=== PATIENT | female | born 1960 | race Caucasian/White ===

== ENCOUNTER 2021-01-14 09:53 | Outpatient (REF) | payer OTHER, SELFPAY ==
--- NOTE | ~2021-01-14 | MM_ITS ---
EXAMINATION: MM SCREENING DIGITAL BREAST TOMOSYNTHESIS, BILATERAL CLINICAL INFORMATION: Screening. Asymptomatic. Prior wna-de-dbrii mammography from [place] currently unavailable. The lifetime risk of breast cancer based on the Tyrer-Cuzick Model is 21%. COMPARISON: None. TECHNIQUE: Digital breast tomosynthesis is performed in both the craniocaudal and mediolateral oblique views along with computer-aided detection (CAD). Synthesized 2D images are generated from the tomosynthesis. FINDINGS: The breasts are heterogeneously dense, which may obscure small masses (ACR BI-RADS breast composition Category c). There is a fine fibronodular parenchymal pattern. There is no significant mass or architectural abnormality. The axilla and skin contours are unremarkable. There are calcifications seen in both breasts, likely dispersed on MLO views. Radiology department will attempt to retrieve prior outside mammography to allow for comparison in an addendum report. MM/MM tomosynthesis screening BI IMPRESSION: 1. No significant mass or architectural abnormality. 2. Bilateral calcifications, likely dispersed on MLO views. ASSESSMENT: BI-RADS 0: Incomplete - Comparison with prior outside exam pending RECOMMENDATION: 1. Radiology department staff will attempt to retrieve outside prior exam(s) to allow for comparison in an addendum report. 2. The lifetime risk of breast cancer based on the Tyrer-Cuzick Model is 21%. Additional annual adjunct screening with breast MRI may be of benefit in women with a risk score of 20% or greater. This patient's information was entered into a reminder system with a target due date for their next mammogram.
== END 2021-01-14 09:54 | disposition home or self-care (01) ==
LOC: HO.MAMMO 09:53
PROVIDERS: PCP Hospitalist; Visit Provider Hospitalist
DX: Z12.31 Encounter for screening mammogram for malignant neoplasm of breast (principal)
CPT/HCPCS: 77063; 77067

== ENCOUNTER 2021-07-15 09:15 | Outpatient (REF) | payer OTHER, SELFPAY ==
[2021-07-15 10:44] LABS: Hematocrit 36.1 % (37-47); Hemoglobin 11.4 g/dl (12.0-16.0); Mean Corpuscular HGB Conc 31.6 g/dl (31.0-35.0)
[2021-07-15 10:46] LABS: Mean Corpuscular Hemoglobin 21.9 pg (27.0-33.0); Mean Corpuscular Volume 69.3 fL (80-98); Platelet Count 157 X10*3/uL (160-400); Red Blood Count 5.21 X10*6/uL (4.20-5.50); Red Cell Distribution Width 16.2 % (11.0-16.0); White Blood Count 4.8 X10*3/uL (4.8-10.8)
[2021-07-15 10:58] LABS: Alanine Aminotransferase 15 U/L (0-31); Albumin Level 4.4 g/dL (3.5-5.0); Alkaline Phosphatase 79 U/L (39-117); Aspartate Amino Transferase 21 U/L (5-31); Bilirubin Direct 0.4 mg/dL (0.0-0.5); Cholesterol 176 mg/dL; HDL Cholesterol 88 mg/dL; LDL Cholesterol Calculated 79 mg/dl; Total Protein 7.1 g/dL (6.5-8.0); Triglycerides 48 mg/dL
[2021-07-15 11:18] LABS: TSH reflex Free T4 1.91 uIU/mL (0.32-4.0)
== END 2021-07-15 09:16 | disposition home or self-care (01) ==
LOC: HO.WFDLDS 09:15
PROVIDERS: PCP Hospitalist; Visit Provider Hospitalist
DX: Z00.00 Encounter for general adult medical examination without abnormal findings (principal)
CPT/HCPCS: 36415; 80061; 80076; 84443; 85027

== ENCOUNTER 2021-11-21 10:19 | Outpatient (REF) | payer OTHER, SELFPAY ==
[2021-11-21 14:24] LABS: CT PCR NOT DETECTED (Not Detect.); NG PCR NOT DETECTED (Not Detect.)
[2021-11-22 09:04] LABS: BV Int Neg Control Negative (Negative); BV Int Pos Control Positive (Positive)
[2021-11-23 13:55] LABS: HPV mRNA E6/E7 rflx Not Detected (Not Detected)
== END 2021-11-21 10:20 | disposition home or self-care (01) ==
LOC: HO.LAB 10:19
PROVIDERS: PCP Hospitalist; Visit Provider Advanced Practice Midwife
DX: Z01.419 Encounter for gynecological examination (general) (routine) without abnormal findings (principal); R10.2 Pelvic and perineal pain; Z11.3 Encounter for screening for infections with a predominantly sexual mode of transmission; Z11.8 Encounter for screening for other infectious and parasitic diseases; Z11.51 Encounter for screening for human papillomavirus (HPV); Z85.3 Personal history of malignant neoplasm of breast; Z87.891 Personal history of nicotine dependence; J30.1 Allergic rhinitis due to pollen; Z91.013 Allergy to seafood
CPT/HCPCS: 81003; 87480; 87491; 87510; 87591; 87624; 87660; 88142

== ENCOUNTER 2021-12-23 16:23 | Outpatient (REF) | payer OTHER, SELFPAY ==
--- NOTE | ~2021-12-23 | US_ITS ---
EXAMINATION: US PELVIS CLINICAL INFORMATION: Pelvic and perineal pain COMPARISON: None TECHNIQUE: Ultrasound of the pelvis is performed using both transabdominal and transvaginal transducers along with Doppler. Transvaginal imaging is performed due to inadequate visualization transabdominally. FINDINGS: Uterus: The uterus is anteverted and measures 5.5 cm in length, 1.8 cm in AP and 3.6 cm in transverse dimension. The double wall endometrial thickness is 0.4 cm. The uterus is smooth in contour and has normal myometrial echogenicity. No visible fibroid. Adnexa: Both ovaries are visualized. There is normal color flow to the adnexa. There is no ovarian torsion. There is no pelvic ascites or fluid collection. Right ovary measures 1.3 x 0.8 x 1.0 cm and volume 0.54 mL. There is unremarkable Left ovary measures 1.9 x 0.6 x 1.1 and volume 0.6 mL. It appears unremarkable. There is minimal free fluid in the cul-de-sac. US/US pelvic and transvaginal IMPRESSION: Unremarkable uterus and ovaries. Minimal free fluid in the cul-de-sac.
== END 2021-12-23 16:24 | disposition home or self-care (01) ==
LOC: HO.US 16:23
PROVIDERS: Visit Provider Advanced Practice Midwife
DX: R10.2 Pelvic and perineal pain (principal)
CPT/HCPCS: 76830; 76856

== ENCOUNTER → 2022-01-03 11:25 | Outpatient (BNVA) | payer OTHER, SELFPAY | PROVIDERS: PCP Hospitalist; Visit Provider Advanced Practice Midwife | DX: Z13.89 Encounter for screening for other disorder (principal) ==

== ENCOUNTER 2022-11-14 11:19 | Outpatient (REF) | payer OTHER, SELFPAY ==
--- NOTE | ~2022-11-14 | MM_ITS ---
EXAMINATION: MM SCREENING DIGITAL BREAST TOMOSYNTHESIS, BILATERAL CLINICAL INFORMATION: Screening. Asymptomatic. The lifetime risk of breast cancer based on the Tyrer-Cuzick Model is 19%. COMPARISON: Mammography: 01/14/2021, outside mammography 03/04/2019, 04/10/2017 and left ultrasound 03/18/2019, ([facility]). TECHNIQUE: Digital breast tomosynthesis is performed in both the craniocaudal and mediolateral oblique views along with computer-aided detection (CAD). Synthesized 2D images are generated from the tomosynthesis. FINDINGS: The breasts are heterogeneously dense, which may obscure small masses (ACR BI-RADS breast composition Category c). Fibronodular parenchymal pattern is similar to prior studies and there is no developing density or architectural abnormality. There are no significant masses, abnormal calcifications, or other abnormalities. MM/MM tomosynthesis screening BI IMPRESSION: No mammographic evidence of malignancy. ASSESSMENT: BI-RADS 1: Negative RECOMMENDATION: Routine annual mammography screening. This patient's information was entered into a reminder system with a target due date for their next mammogram.
== END 2022-11-14 11:20 | disposition home or self-care (01) ==
LOC: HO.MAMMO 11:19
PROVIDERS: PCP Hospitalist; Visit Provider Hospitalist
DX: Z12.31 Encounter for screening mammogram for malignant neoplasm of breast (principal)
CPT/HCPCS: 77063; 77067

== ENCOUNTER → 2023-01-10 15:09 | Outpatient (BNVA) | payer BC, SELFPAY | PROVIDERS: PCP Hospitalist; Visit Provider Advanced Practice Midwife | DX: Z13.89 Encounter for screening for other disorder (principal) ==

== ENCOUNTER 2023-07-24 08:57 | Outpatient (AMB) | payer BC, SELFPAY ==
--- NOTE | 2023-07-24 09:05 | MHC.PC.OV ---
Vital Signs 07/24/23 09:07 Height 5 ft 5 in Weight 126 lb 4 oz BMI 21.0 BP 120/62 Blood Pressure Location Rt brachial Position Sitting Respiration 12 Pulse 68 Pulse Source Pulse Oximeter Temp 98.1 F Temp Source Oral Pulse Oximetry (%) 99 Oxygen Delivery Method Room Air Intake Visit Reasons: 6 mo for mood and meds Intake Note: Patient is here for her mood and meds, Sertraline, Trazedone. Allergies shellfish derived Allergy (Unknown, Verified 07/24/23 09:33) Unknown poison preston Allergy (Intermediate, Uncoded 07/24/23 09:33) rash, weeping Medication List - Last Reconciled 07/24/23 by Caden Mtz, LILLIE peg 3350-electrolytes [id number] -5.86 gram 240 mL PO Q10M sertraline 50 mg PO DAILY trazodone 25 mg (1/2 x 50 mg) PO DAILY Tobacco use date assessed: 07/24/23 Dental Screening Dental Screen Date: 07/24/23 Did you have a dental visit in the last 12 months?: Yes Did you have a dental problem in the last 6 months where you did not have access to dental care?: No Was dental information given to patient?: Patient has dentist HPI HPI Comments History of Present Illness Details 62-year-old female presents for anxiety and depression follow-up. She was last evaluated by in November 2022 by her form a PCP, CARRIE, who is no longer with the practice. She had a physical exam at that visit. She is on Sertraline and Trazodone which she notes she has been taking as prescribed with controlled anxiety and depression symptoms. She reports h/o psychotherapy and notes is currently being followed by a therapist. She requests a referral to a therapist. She offers no acute symptoms at this time. [facility] Medical History Insomnia History of anxiety Depression Surgical History H/O foot surgery No pertinent past surgical history Family History Father No problems noted. Mother No problems noted. Sister In good health History of breast cancer Brother In good health Maternal Aunt History of breast cancer Paternal Aunt History of breast cancer Paternal Uncle History of breast cancer Paternal Grandmother History of breast cancer Social History Housing: House Alcohol intake: current Alcohol intake frequency: 0-2 drinks per day Patient Tobacco Use Status: Former Tobacco user Tobacco use type: Cigarette e-Cigarette/Vaping Use: Never Used Second Hand Smoke Exposure: No service: No Current occupational status: employed Sexual orientation: Straight/Heterosexual Gender identity: Female Cognitive needs: No Hearing needs: No Vision needs: No Questionnaire PHQ-9 Over the last 2 weeks, how often have you been bothered by any of the following problems? 1. Little interest or pleasure in doing things: not at all 2. Feeling down, depressed, or hopeless: not at all 3. Trouble falling or staying asleep, or sleeping too much: nearly every day 4. Feeling tired or having little energy: not at all 5. Poor appetite or overeating: not at all 6. Feeling bad about yourself - or that you are a failure or have let yourself or your family down: several days 7. Trouble concentrating on things, such as reading the newspaper or watching television: more than half the days 8. Moving or speaking so slowly that other people could have noticed. Or the opposite - being so fidgety or restless that you have been moving around a lot more than usual: not at all 9. Thoughts that you would be better off or of hurting yourself in some way: not at all Total score: 6 Depression Screening Interpretation: Positive Depression Screening Follow-up: Existing condition, In treatment and Community Mental Health Worker F/U Depression Screening Done: Yes Source: Developed by Drs. Myke Valencia, Kellie Silveira, Kermit Sharif and colleagues, with an educational abbie from [employer]. Thrive Questionnaire Date Thrive assessed: 12/07/22 DILIP-7 AMB Questionnaire DILIP-7 Date DILIP - 7 assessed: 07/24/23 Feeling nervous, anxious, or on edge: 1 = Several days Not being able to stop or control worryin = Several days Worrying too much about different things: 1 = Several days Trouble relaxin = Several days Being so restless that it is hard to sit still: 0 = Not at all Becoming easily annoyed or irritable: 1 = Several days Feeling afraid as if something awful might happen: 0 = Not at all Total DILIP-7 score (0-4 normal; 5-9 mild; 10-14 moderate; 15-21 severe): 5 Source: Developed by Drs. Myke Valencia, Kellie Silveira, Kermit Sharif and colleagues, with an educational abbie from [employer]. Review of Systems Const Details: Const Denies chills, Denies fatigue, Denies fever(s), Denies headache(s) and Denies weakness ENT Denies dizziness and Denies headache(s) Card Denies chest pain, Denies lightheadedness, Denies dyspnea and Denies other (Palpitations) Resp Denies cough, Denies dyspnea, Denies wheezing and Denies other ( shortness of breath) GI Denies abdominal pain, Denies melena, Denies hematochezia, Denies change in bowel habits, Denies dyspepsia and Denies nausea Denies hematuria and Denies dysuria Musc Denies abnormal gait, Denies myalgias, Denies arthralgias, Denies numbness and Denies tingling Skin/Breast Denies rash, Denies unusual bruising and Denies wounds Neuro Denies abnormal gait, Denies dizziness, Denies headache(s), Denies memory loss, Denies numbness, Denies Sensory deficit (Neuro), Denies tingling and Denies weakness Psych Denies anxiety, Denies depression, Denies memory loss Endo Denies cold intolerance, Denies fatigue, Denies heat intolerance, Denies polydipsia and Denies polyuria Aller/Immun Denies wheezing Physical exam (Primary Care) Vital Signs: Last Vital Signs Temp 98.1 F 07/24/23 09:07 Pulse 68 07/24/23 09:07 Resp 12 07/24/23 09:07 BP 120/62 07/24/23 09:07 Pulse Ox 99 07/24/23 09:07 Oxygen Delivery Method Room Air 07/24/23 09:07 BMI result Body Mass Index 21.0 Tobacco/Smoking Status: Tobacco use Status Tobacco use date assessed 07/24/23 07/24/23 09:18 Patient Tobacco Use Status Former Tobacco user 07/24/23 09:07 Tobacco use type Cigarette 10/10/23 09:07 e-Cigarette/Vaping Use Never Used 07/24/23 09:07 PHQ-9: PHQ-9 Score PHQ-9: Total score 6 07/24/23 09:18 Depression Screening Interpretation: Positive Depression Screening Follow-up: Existing condition, In treatment and Community Mental Health Worker F/U Thrive Assessment: Date of Thrive Assessment Date Thrive assessed 12/07/22 07/24/23 09:07 Const Other: General: no acute distress and well developed Nutritional Appearance: well nourished Orientation/consciousness: patient oriented x3 HENMT Head: Yes normocephalic and Yes atraumatic Eyes General: appearance normal, both eyes and all related structures Pupils: Equal, round and reactive pupils present EOM: EOMs intact bilaterally Resp Effort & Inspection: normal respiratory effort Auscultation: clear to auscultation bilaterally Cardio Rate: regular rate Rhythm: regular rhythm Heart sounds: S1 normal heart sound present, S2 normal heart sound present, no gallops, no murmurs and no rubs GI Palpation (GI): No Abdominal aortic bruit present, Soft to palpation, nontender, No hepatosplenomegaly present and No Rebound tenderness present Auscultation: normal bowel sounds General: Yes no CVA tenderness Back/Spine/Pelvis Back: no CVA tenderness Cervical Spine: cervical ROM normal and No Cervical spine tenderness Thoracic/Lumbar Spine: thoraco-lumbar ROM normal, No pain with thoraco-lumbar ROM, No thoracic spinal tenderness and No lumbar spinal tenderness Extrem General: Yes normal to inspection, No edema and No calf tenderness Skin General: warm and dry. Normal skin color. Normal skin turgor Lesions: no lesions Rashes: no rashes Trauma: no lacerations or abrasions Wounds: no wounds Nails: normal Neuro General: patient oriented x3, gait normal and no focal neuro deficit Cranial nerves: Yes Equal, round and reactive pupils present Cognition (Neuro): normal cognition Gait exam (Neuro): Normal gait present Sensory Exam: No Sensory deficit (Neuro) Psych Appearance: grossly normal Affect: normal affect Attitude: cooperative Thought process: Normal thought process present Assessment and Plan Assessment & Plan (1) Anxiety and depression: Code(s): F41.9 - Anxiety disorder, unspecified; F32.A - Depression, unspecified Plan: PHQ-9 and DILIP-7 scores revealed mild depression and anxiety Continue with current treatment regimen She met with the community navigator who will referred to a therapist Routine exercise encouraged Follow-up in 3 months or return sooner with worsening or new symptoms Verbalized understanding and agreed with treatment plan. Coding Level of Care Code Est Pt Level 3 (46197) Diagnoses Anxiety and depression F41.9; F32.A
[2023-07-24 09:07] VITALS: BP 120/62; PULSE 68; RESP 12; TEMP 36.7; O2SAT 99; BMI 21.0
== END 2023-07-24 10:04 | disposition home or self-care (01) ==
PROVIDERS: PCP Hospitalist; Visit Provider Nurse Practitioner Family
DX: F41.9 Anxiety disorder, unspecified (principal); F32.A Depression, unspecified
CPT/HCPCS: 99213

== ENCOUNTER 2023-11-15 11:46 | Outpatient (REF) | payer BC, SELFPAY | END 2023-11-15 11:47 | disposition home or self-care (01) | LOC: HO.MAMMO 11:46 | PROVIDERS: Visit Provider Hospitalist | DX: Z12.31 Encounter for screening mammogram for malignant neoplasm of breast (principal) | CPT/HCPCS: 77063; 77067 ==

== ENCOUNTER → 2023-11-15 12:00 | Outpatient (BNV) | payer BC, SELFPAY | PROVIDERS: Visit Provider Radiology Diagnostic Radiology | DX: Z12.31 Encounter for screening mammogram for malignant neoplasm of breast (principal) | CPT/HCPCS: 77063; 77067 ==

== ENCOUNTER 2024-01-16 15:16 | Outpatient (AMB) | payer BC, SELFPAY ==
--- NOTE | 2024-01-16 15:17 | A.OFFVIS_ITS ---
Intake Vital Signs 01/16/24 15:18 Height 5 ft 5 in Weight 127 lb BMI 21.1 BP 110/72 Intake Visit Reasons: Annual Electrical And Instrumentation Manager: Electrical And Instrumentation Manager Present (Demi) Allergies shellfish derived Allergy (Unknown, Verified 01/16/24 15:18) Unknown poison preston Allergy (Intermediate, Uncoded 07/24/23 09:33) rash, weeping HPI HPI Comments History of Present Illness Details She is a postmenopausal woman presenting for her annual process architect examination. She is doing well with no concerns. Attempting to eat a healthy diet with calcium and vitamin D and stays active with exercise. Currently sexually active. Denies any irritation. Admits to vaginal dryness. STI testing offered; she declines. Last pap smear; 2021. Last mammogram; 2022. Colonoscopy is this year. Denies any family history of breast, ovarian or colon cancer. [facility], [facility] Medical History Insomnia History of anxiety Depression Surgical History H/O foot surgery No pertinent past surgical history Family History (Updated 01/16/24 @ 16:02 by Kelsey Abdi CNM) Father No problems noted. Mother No problems noted. Sister In good health History of breast cancer, Onset Age: 70 Brother In good health Maternal Aunt History of breast cancer Paternal Aunt History of breast cancer Paternal Uncle History of breast cancer Paternal Grandmother History of breast cancer Social History Housing: House Alcohol intake: current Alcohol intake frequency: 0-2 drinks per day Patient Tobacco Use Status: Former Tobacco user Tobacco use type: Cigarette e-Cigarette/Vaping Use: Never Used Second Hand Smoke Exposure: No service: No Current occupational status: employed Sexual orientation: Straight/Heterosexual Gender identity: Female Cognitive needs: No Hearing needs: No Vision needs: No Female Reproductive History Menstrual Total pregnancies: 0 Date of last pap smear: 11/21/21 (neg pap and hpv) Date of Mammogram: 11/15/23 ([facility] 1) Review of Systems Const All systems reviewed & are unremarkable except as noted in HPI and below Reports as per HPI Eyes Reports no additional complaints ENT Reports no additional complaints Card Reports no additional complaints Resp Reports no additional complaints GI Reports as per HPI and Reports no additional complaints Reports as per HPI Musc Reports no additional complaints Skin/Breast Reports as per HPI Neuro Reports no additional complaints Psych Reports no additional complaints Endo Reports no additional complaints Johnny/Lymph Reports no additional complaints Aller/Immun Reports no additional complaints Physical Exam Vital Signs: Last Vital Signs BP 110/72 01/16/24 15:18 BMI result Body Mass Index 21.1 Const General: cooperative, healthy appearing, no acute distress, well developed and alert Orientation/consciousness: patient oriented x3 HEENT Head: Yes normal to inspection Eyes General: appearance normal, both eyes and all related structures Neck Neck: Yes normal visual inspection Thyroid: Thyroid normal Chest Chest palpation & inspection: normal inspection of the chest and other (no puckering, dimpling, peau de orange, retraction, discharge, masses) Breast/axilla inspection: normal inspection of the breasts Breast/axilla palpation: normal palpation of the breasts Resp Effort & Inspection: normal respiratory effort GI Inspection: Yes normal to inspection Palpation (GI): Soft to palpation Rectal Exam - Female: deferred General: Yes bladder normal to palpation External Female Exam: normal external appearance and normal appearance of the urethra Speculum Exam - Vagina: normal appearance of the vagina, normal palpation, normal vaginal discharge and vagina atrophic Speculum Exam - Cervix: normal appearance of the cervix and normal palpation Bimanual exam- vagina & uterus: normal bimanual exam, normal palpation, uterine size normal, bladder normal to palpation, normal palpation and non-tender Bimanual Exam- Adnexa, other: no masses Skin General skin exam: no rashes or lesions noted Rashes: no rashes Neuro General: patient oriented x3 Cognition (Neuro): normal cognition Extrem General: Yes normal to inspection Psych Attitude: cooperative Thought process: Normal thought process present Assessment & Plan Assessment & Plan (1) Encounter for well woman exam with routine gynecological exam: Code(s): Z01.419 - Encounter for gynecological examination (general) (routine) without abnormal findings Plan Discussed: Current recommendations for pap smears per ASCCP guidelines. Breast awareness, periodic self breast exams and yearly mammogram. Maintain a healthy lifestyle, well balanced diet including Calcium 1,200 mg and Vitamin D 600 IU daily, and routine exercise. Replens vaginal moisturizer information provided. If no improvement after 12 weeks or so she can follow up for other options possible topical estrogen treatment, patient advised to call for an appointment as desired. Contact the office with any postmenopausal bleeding. Patient verbalizes understanding and agrees to the plan of care. She was given opportunity to ask questions and all questions were answered to the best of my ability. RTO in 1 year for annual process architect exam. This note is constructed using voice recognition software. While every effort has been made to ensure accuracy, order filler errors may have been included. Coding Level of Care Code Est Pt Prev Care 40-64y(20788) Diagnoses Encounter for well woman exam with routine gynecological exam Z01.419
[2024-01-16 15:18] VITALS: BP 110/72; BMI 21.1
== END 2024-01-16 16:14 | disposition home or self-care (01) ==
LOC: HO.HWS 15:16
PROVIDERS: Visit Provider Advanced Practice Midwife
DX: Z01.419 Encounter for gynecological examination (general) (routine) without abnormal findings (principal)
CPT/HCPCS: 99396

== ENCOUNTER → 2024-01-16 15:16 | Outpatient (BNVA) | payer BC, SELFPAY | PROVIDERS: Visit Provider Advanced Practice Midwife ==

== ENCOUNTER 2024-03-26 14:18 | Outpatient (AMB) | payer BC, SELFPAY ==
--- NOTE | 2024-03-26 14:29 | A.OFFPC_ITS ---
Vital Signs 03/26/24 14:33 Height 5 ft 4.65 in Weight 124 lb 2 oz BMI 20.9 BP 132/86 Blood Pressure Location Lt brachial Position Sitting Pulse 70 Pulse Source Pulse Oximeter Temp 97.3 F Temp Source Oral Pulse Oximetry (%) 95 Oxygen Delivery Method Room Air Intake Visit Reasons: CARY from [facility] Intake Note: New patient visit Allergies shellfish derived Allergy (Unknown, Verified 03/26/24 14:30) Unknown poison preston Allergy (Intermediate, Uncoded 03/26/24 14:30) rash, weeping Medication List - Last Reconciled 03/26/24 by Kyleigh Huston PA-C bisacodyl (Dulcolax (bisacodyl)) 20 mg (4 x 5 mg) PO ONCE 1 day peg 3350-electrolytes 236-22.74-6.74 -5.86 gram 240 mL PO Q10M sertraline 50 mg PO DAILY 30 days Tobacco use date assessed: 03/26/24 Dental Screening Dental Screen Date: 03/26/24 Did you have a dental visit in the last 12 months?: Yes Did you have a dental problem in the last 6 months where you did not have access to dental care?: No Was dental information given to patient?: Patient has dentist HPI CARY from [facility] HPI Details Patient is a 63-year-old female with a significant past medical history of anxiety, insomnia, hx of mild depression (resolved), and thalassemia Psych: She is currently on zoloft 50 mg. No SI/HI. CV: Blood pressure today is 132/86. Not on medication for this. Overdue for lipids. Heme: has thalassemia Derm: follows for routine skin exams with Dr. Ferris. Brother had melanoma Colonoscopy: scheduled at [facility] next month - last one was ten years ago Mammogram: 12/0864-ju-pt-date Pap: follows with Kelsey Abdi Bone density: overdue Fam hx : Sister with breast ca Brother #1 Prostate ca Brother #2 with melanoma [facility] Medical History (Updated 03/26/24 @ 16:19 by Kyleigh Huston PA-C) Generalized anxiety disorder Insomnia History of anxiety Depression Surgical History H/O foot surgery No pertinent past surgical history Family History (Updated 03/26/24 @ 14:33 by Yina Disla CMA) Father No problems noted. Mother No problems noted. Sister In good health History of breast cancer, Onset Age: 70 Brother In good health Maternal Aunt History of breast cancer Paternal Aunt History of breast cancer Paternal Uncle History of breast cancer Paternal Grandmother History of breast cancer Other FH: mental illness Substance use Social History (Updated 03/26/24 @ 14:32 by Yina Disla CMA) Housing: House Alcohol intake: current Alcohol intake frequency: 0-2 drinks per day Patient Tobacco Use Status: Former Tobacco user Tobacco use type: Cigarette Cigarettes Per Day: 3 Years Smoked: 20 e-Cigarette/Vaping Use: Never Used Second Hand Smoke Exposure: No service: No Current occupational status: employed 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 How often do you have a drink containing alcohol?: 2-3 times a week 2. How many drinks containing alcohol do you have on a typical day when you are drinking?: 1 or 2 3. How often do you have six or more drinks on one occasion?: Never Total Score: 3 DILIP-7 AMB Questionnaire DILIP-7 Date DILIP - 7 assessed: 07/24/23 Source: Developed by Drs. Myke Valencia, Kellie Silveira, Kermit Sharif and colleagues, with an educational abbie from [employer]. Physical exam (Primary Care) Vital Signs: Last Vital Signs Temp 97.3 F 03/26/24 14:33 Pulse 70 03/26/24 14:33 BP 132/86 03/26/24 14:33 Pulse Ox 95 03/26/24 14:33 Oxygen Delivery Method Room Air 03/26/24 14:33 BMI result Body Mass Index 20.9 Tobacco/Smoking Status: Tobacco use Status Tobacco use date assessed 03/26/24 03/26/24 14:37 Patient Tobacco Use Status Former Tobacco user 03/26/24 14:37 Tobacco use type Cigarette 03/26/24 14:37 e-Cigarette/Vaping Use Never Used 03/26/24 14:37 Thrive Assessment: Date of Thrive Assessment Date Thrive assessed 12/07/22 03/26/24 14:37 Const Orientation/consciousness: patient oriented x3 HENMT Ears: hearing grossly normal bilaterally Neck Thyroid: Thyroid normal Lymphatic: no lymphadenopathy noted Resp Auscultation: clear to auscultation bilaterally Cardio Rate: regular rate Rhythm: regular rhythm Heart sounds: S1 normal heart sound present and S2 normal heart sound present GI Inspection: Yes normal to inspection Palpation (GI): Soft to palpation and Other GI palpation findings present (nontender, no cva tenderness) Auscultation: normoactive bowel sounds Rectal Exam - Female: deferred Skin General skin exam: no rashes or lesions noted Neuro General: patient oriented x3, gait normal and no focal motor deficits Results Reviewed Results Reviewed: Last CBC in 2020 consistent with anemia. No updated labs. Assessment and Plan Assessment & Plan (1) Generalized anxiety disorder: Code(s): F41.1 - Generalized anxiety disorder Plan: will refill medication today (2) Encounter to establish care: Code(s): Z76.89 - Persons encountering health services in other specified circumstances Plan: labs ordered hm reviewed bone density ordered Orders: Orders Comprehensive Radnor. Panel Fast Today F41.1 - Generalized anxiety disorder, Z13.220 - Encounter for screening for lipoid disorders TSH reflex Free T4 Today F41.1 - Generalized anxiety disorder, Z13.220 - Encounter for screening for lipoid disorders Complete Blood Count Auto Diff Today F41.1 - Generalized anxiety disorder, Z13.220 - Encounter for screening for lipoid disorders Lipid Panel Today F41.1 - Generalized anxiety disorder, Z13.220 - Encounter for screening for lipoid disorders Vitamin B12 and Folate Today F41.1 - Generalized anxiety disorder, Z13.220 - Encounter for screening for lipoid disorders XR DEXA axial skeleton Today F41.1 - Generalized anxiety disorder, Z13.220 - Encounter for screening for lipoid disorders, Z78.0 - Asymptomatic menopausal state Medications: Changed From sertraline 50 mg PO DAILY 30 days 30 tabs 0RF F32.9 - Major depressive disorder, single episode, unspecified To sertraline 50 mg PO DAILY 90 tabs 3RF 90 days F32.9 - Major depressive disorder, single episode, unspecified Coding Level of Care Code Est Pt Level 4 (88232) Complex EM visit Add On G2211 Diagnoses Generalized anxiety disorder F41.1 Encounter to establish care Z76.89
[2024-03-26 14:33] VITALS: BP 132/86; PULSE 70; TEMP 36.3; O2SAT 95; BMI 20.9
== END 2024-03-26 15:28 | disposition home or self-care (01) ==
PROVIDERS: Visit Provider Physician Assistant
DX: F41.1 Generalized anxiety disorder (principal); Z76.89 Persons encountering health services in other specified circumstances
CPT/HCPCS: 99214

== ENCOUNTER 2024-04-25 09:08 | Outpatient (REF) | payer BC, SELFPAY ==
--- NOTE | ~2024-04-25 | MM_ITS ---
EXAMINATION: BONE DENSITOMETRY CLINICAL INDICATION: Asymptomatic menopausal state. COMPARISON: This is the patient's baseline examination. TECHNIQUE: Using a Pixelligent DXA System (software version: 13.1) manufactured by [employer] dual-energy x-ray absorptiometry was performed of the lumbar spine and left hip. The images are of good technical quality. Summary results are attached. FINDINGS: LEFT FEMUR, NECK: BMD 0.673 g/cm2, Z-score -1.1, T-score -2.6, osteoporosis. LEFT FEMUR, TOTAL: BMD 0.704 g/cm2, Z-score -1.2, T-score -2.4, osteopenia. AP SPINE L1-L4: BMD 0.819 g/cm2, Z-score -1.4, T-score -3.0, osteoporosis. IDENTIFIED RISK FACTORS: Height loss, menopause. HISTORY OF FRACTURE: None listed. MEDICATIONS: Vitamin D. MM/XR DEXA axial skeleton IMPRESSION: 1. DIAGNOSIS: Osteoporosis based on the lowest T-score value of -3.0 in the lumbar spine applying World Health Organization criteria. 2. 10-YEAR FRACTURE RISK PREDICTION, FRAX: According to the guidelines, FRAX calculation should only be performed on patients in the osteopenia bone density category. Therefore, FRAX was not performed on this patient. 3. Treatment Recommendations: NOF guidelines recommend consideration for treatment in postmenopausal women and men age 50 and older presenting with the following: -A hip or vertebral (clinical or morphometric) fracture. -T-score less than or equal to -2.5 at the femoral neck or spine after appropriate evaluation to exclude secondary causes. -Low bone mass at the hip or spine and a 10-year fracture probability by FRAX of greater than or equal to 3% for hip fracture or greater than or equal to 20% for major osteoporotic fracture based on the [place] adapted WHO algorithm. 4. Other Recommendations: All treatment decisions require clinical judgment and consideration of individual patient factors, including patient preferences, comorbidities, previous drug use, risk factors not captured in the FRAX model (e.g. frailty, falls, vitamin D deficiency, increased bone turnover, interval significant decline in bone density) and possible under or overestimation of fracture risk by FRAX. Additional medical evaluation for secondary cause of low bone mineral density may be appropriate. FUTURE SCAN RECOMMENDATION: People with diagnosed cases of osteoporosis or at high risk for fracture should have regular bone mineral density tests. For patients eligible for Medicare, routine testing is allowed once every 2 years. The testing frequency can be increased to one year for patients who have rapidly progressing disease, those who are receiving or discontinuing medical therapy to restore bone mass, or have additional risk factors.
== END 2024-04-25 09:09 | disposition home or self-care (01) ==
LOC: HO.MAMMO 09:08
PROVIDERS: PCP Physician Assistant; Visit Provider Physician Assistant
DX: Z13.820 Encounter for screening for osteoporosis (principal); Z78.0 Asymptomatic menopausal state
CPT/HCPCS: 77080

== ENCOUNTER 2024-04-28 11:55 | Day surgery (SDC) | payer BC, SELFPAY ==
--- NOTE | 2024-04-25 09:23 | HO.ANESPROP2 ---
HPI - Anesthesia Eval Consult details Narrative: 63yo F for Colonoscopy PMFSH Active Problems Active Problems: All Active Problems Encounter to establish care (Acute) Generalized anxiety disorder (Acute) Anxiety and depression (Acute) Hx of iron deficiency anemia (Acute) Normal physical exam (Acute) Actinic keratosis of forehead (Acute) Encounter to discuss test results (Acute) Left lower quadrant pain (Acute) Poison preston dermatitis (Acute) Sleep disturbance (Acute) AK (actinic keratosis) (Acute) Well adult exam (Acute) Past Medical History Medical History Generalized anxiety disorder Insomnia History of anxiety Depression Family History Family History Father No problems noted. Mother No problems noted. Sister In good health History of breast cancer, Onset Age: 70 Brother In good health Maternal Aunt History of breast cancer Paternal Aunt History of breast cancer Paternal Uncle History of breast cancer Paternal Grandmother History of breast cancer Other FH: mental illness Substance use Surgical History Surgical History Hx of colonoscopy H/O foot surgery Social History Social History Housing: House Alcohol intake: current Alcohol intake frequency: does not drink Patient Tobacco Use Status: Former Tobacco user Tobacco use type: Cigarette Cigarettes Per Day: 3 Years Smoked: 20 e-Cigarette/Vaping Use: Never Used Second Hand Smoke Exposure: No service: No Current occupational status: employed 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 Current occupational exposures/hazards: No Sexual orientation: Straight/Heterosexual Gender identity: Female Cognitive needs: No Hearing needs: No Vision needs: No Meds Allergies Allergy/AdvReac Type Severity Reaction Status Date / Time shellfish derived Allergy Intermediate Rash Verified 04/28/24 12:40 poison preston Allergy Intermediate rash, Uncoded 03/26/24 14:30 weeping Home Medications ?Medication ?Instructions ?Recorded ?Confirmed ?Last Taken ?Type sertraline 50 mg tablet 50 mg PO BEDTIME 04/28/24 04/28/24 04/27/24 History Assessment and Plan Assessment Anesthesia Assessment: Chart Reviewed
[2024-04-28 09:28] VITALS: BMI 21.3
--- NOTE | 2024-04-28 12:30 | MHC.SHP ---
Pre-Procedural Eval Section A - 24 Hr Update-Section A only Date of Service: 04/28/24 The patient is an INPATIENT: No The patient has been examined within 24 hours of the surgical procedure. The History & Physical has been completed within 30 days and I have reviewed it.: No Section B - Complete if H&P > 30 days Chief Complaint: Screening, open access colonoscopy Details of Present Illness: Pt denies abdominal pain, recent change in bowel habits or rectal bleeding Relevant Family History (Specify if Yes): No Relevant Social History: Tobacco Use (Former smoker) Present Medications: see Short Stay Collaborative assessment Medical History: Significant History (Generalized anxiety disorder Insomnia History of anxiety Depression) History of Previous Operations: Relevant previous surgery/procedure and date(s) (H/O foot surgery) Allergies: Allergies Allergy/AdvReac Type Severity Reaction Status Date / Time shellfish derived Allergy Unknown Unknown Verified 03/26/24 14:30 poison preston Allergy Intermediate rash, Uncoded 03/26/24 14:30 weeping Review of Systems Sugical H&P ROS: Negative: Constitution, Cardiovascular, Respiratory and Gastrointestinal Exam Surgical H&P Exam: Normal: Heart, Normal: Lungs, Normal: Extremities and Normal: Abdomen Plan Diagnosis/Plan: Change (Proceed with colonoscopy) I have reviewed the history and physical and performed a pertinent physical examination on my patient. No changes have occurred unless specified. Time Spent With Patient Time: Total time managing care of this patient today ____ minutes.
[2024-04-28 12:34] VITALS: BP 154/76; PULSE 68; RESP 18; TEMP 36.1; O2SAT 96; BMI 21.0
[2024-04-28] MEDS: Lactated Ringers 1,000 ML 100 ML IVCONT (12:50)
--- NOTE | 2024-04-28 13:23 | HO.ANESPROP2 ---
FORM[facility]LY [facility] Active Problems Active Problems: All Active Problems Encounter to establish care (Acute) Anxiety and depression (Acute) Hx of iron deficiency anemia (Acute) Normal physical exam (Acute) Actinic keratosis of forehead (Acute) Encounter to discuss test results (Acute) Left lower quadrant pain (Acute) Poison preston dermatitis (Acute) Sleep disturbance (Acute) AK (actinic keratosis) (Acute) Well adult exam (Acute) Generalized anxiety disorder (Acute) Past Medical History Medical History Generalized anxiety disorder Insomnia History of anxiety Depression Functional capacity: independent ambulation Patient : No Family History Family History Father No problems noted. Mother No problems noted. Sister In good health History of breast cancer, Onset Age: 70 Brother In good health Maternal Aunt History of breast cancer Paternal Aunt History of breast cancer Paternal Uncle History of breast cancer Paternal Grandmother History of breast cancer Other FH: mental illness Substance use Family history of problems with anesthesia: No Surgical History Surgical History Hx of colonoscopy H/O foot surgery History of Problems with Anesthesia: No Social History Social History Housing: House Alcohol intake: current Alcohol intake frequency: does not drink Patient Tobacco Use Status: Former Tobacco user Tobacco use type: Cigarette Cigarettes Per Day: 3 Years Smoked: 20 e-Cigarette/Vaping Use: Never Used Second Hand Smoke Exposure: No Are you DNR?: No Advance Directives: No Advance Directives Information Provided: Yes Nutrition Risks: No Nutritional Risk service: No Current occupational status: employed 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 Current occupational exposures/hazards: No Sexual orientation: Straight/Heterosexual Gender identity: Female Cognitive needs: No Hearing needs: No Vision needs: No Meds Allergies Allergy/AdvReac Type Severity Reaction Status Date / Time shellfish derived Allergy Intermediate Rash Verified 04/28/24 12:40 poison preston Allergy Intermediate rash, Uncoded 03/26/24 14:30 weeping Active Medications: Current Medications Lactated Ringer's (Lr) 1,000 mls @ 100 mls/hr IVCONT .Q10H NIDHI Last Admin: 04/28/24 12:50 Dose: 100 mls/hr Home Medications ?Medication ?Instructions ?Recorded ?Confirmed ?Last Taken ?Type sertraline 50 mg tablet 50 mg PO BEDTIME 04/28/24 04/28/24 04/27/24 History Exam Height,Weight and Vital Signs: Height 5 ft 4 in Weight 55.474 kg Last Vital Signs Temp 96.9 F 04/28/24 12:34 Pulse 68 04/28/24 12:34 Resp 18 04/28/24 12:34 BP 154/76 H 04/28/24 12:34 Pulse Ox 96 04/28/24 12:34 O2 Del Method Room Air 04/28/24 12:34 Airway Mallampati Class: II TM Dist: >3cm Neck ROM: Full Heart: RRR Lungs: CTA Assessment and Plan Assessment Anesthesia Assessment: Anesthesia Plan Discussed Final Anesthetic Review Family History of Problems with Anesthesia: No History of Problems with Anesthesia: No NPO: Yes ASA Class: II Final Preanesthetic Review: Meds/Allgs Chart Reviewed, Consent Obtained/Reviewed and Anes Risks/Benef Reviewed Anesthetic Plan Anesthetic Plan: MAC: Disposition: Standard PACU
--- NOTE | 2024-04-28 14:56 | P.OPN-COLO_ITS ---
Colonoscopy Operative Note Operative Note Date of Service: 04/28/24 Narrative: COLONOSCOPY TILL CECUM Pre-op diagnosis: Colon cancer screening. Post-op diagnosis:?Diverticulosis Endoscopist:? Javier Kowalski MD Anesthesia:?MAC Consent: Indications for the procedure and potential complications of bleeding, perforation, reaction to medications and missed diagnosis were discussed with the patient and informed consent was obtained. Instrument: Olympus PCF H 190 L variable stiffness pediatric colonoscope Monitoring: Vital signs and clinical assessment, intermittent blood pressure monitoring, continuous EKG monitoring, Pulse oximetry and Carbon Dioxide monitoring were done throughout the procedure. Please see anesthesia flowsheet. Colon withdrawl time was 22 minutes. Procedure: The patient was placed in the left lateral decubitis position and pre-procedure medications were administered. After a digital rectal examination of the ano-rectum, the video colonoscope was inserted into the rectum and advanced through the colon to the cecum. The colonoscope was slowly withdrawn in a retrograde panoramic fashion and the colon mucosa was carefully examined including a retroflexed view of the rectum. Findings and interventions are described below. Procedure Difficulty: Colon was long and tortuous and there was some loop forma tion Findings: Terminal Ileum: Not evaluated Cecum: Normal Ascending Colon: Normal Transverse Colon: Normal Descending Colon: Moderate diverticulosis Sigmoid Colon: Moderate diverticulosis Rectum: Normal Ano-rectum: Normal Colon preparation: Good after copious irrigation and fair in the right colon (due to a thin layer of stools - no large lesions seen but smaller polyps could be missed). [place] Bowel Preparation Scale Right colon; 1 Transverse colon: 2 Left colon; 2 (0 = Unprepared colon segment with mucosa not seen due to solid stool that cannot be cleared. 1 = Portion of mucosa of the colon segment seen, but other areas of the colon segment not well seen due to staining, residual stool and/or opaque liquid. 2 = Minor amount of residual staining, small fragments of stool and/or opaque liquid, but mucosa of colon segment seen well. 3 = Entire mucosa of colon segment seen well with no residual staining, small fragments of stool or opaque liquid) Impression and Post Procedure Diagnosis: Colonoscopy Findings: No polyps were detected Moderate diverticulosis seen in the left colon Plan: Repeat Colonoscopy in 5 years due to sub-optimal prep in the right colon. Above findings were reviewed with the patient and relevant handouts were given and the discharge area.
[2024-04-28 14:59] VITALS: BP 92/46; PULSE 54; RESP 16; TEMP 36.1; O2SAT 96
[2024-04-28 15:04] VITALS: BP 98/71; PULSE 69; RESP 16; O2SAT 97
[2024-04-28 15:14] VITALS: BP 127/70; PULSE 56; RESP 16; TEMP 36.1; O2SAT 97
--- NOTE | 2024-04-28 15:23 | HO.POSTANES ---
Post Anesthesia Evaluation Post Anesthesia Evaluation Date of Service: 04/28/24 Vital Signs: Vital Signs Temp Pulse Resp BP Pulse Ox O2 Del Method 04/28/24 15:14 97 F 56 16 127/70 97 Room Air 04/28/24 15:04 69 16 98/71 97 Room Air 04/28/24 14:59 97 F 54 16 92/46 L 96 Room Air 04/28/24 12:34 96.9 F 68 18 154/76 H 96 Room Air Anesthesia: Monitored Mental Status: Awake Pain Control: Satisfactory Nausea/Vomiting: None Hydration: Adequate Anesthesia-Related Issues: No Anes. Related Issues
== END 2024-04-28 16:22 | disposition home or self-care (01) ==
PROVIDERS: PCP Physician Assistant; Visit Provider Internal Medicine Gastroenterology
PROC: 0DJD8ZZ Inspection of Lower Intestinal Tract, Via Natural or Artificial Opening Endoscopic (ICD-10-PCS; CPT 45378; principal; 2024-04-28 13:20)
DX: Z12.11 Encounter for screening for malignant neoplasm of colon (principal); K57.30 Diverticulosis of large intestine without perforation or abscess without bleeding; F32.A Depression, unspecified; F41.1 Generalized anxiety disorder; G47.00 Insomnia, unspecified; Z79.899 Other long term (current) drug therapy; Z87.891 Personal history of nicotine dependence
CPT/HCPCS: 45378; J2704

== ENCOUNTER → 2024-04-28 11:55 | Outpatient (BNV) | payer BC, SELFPAY | PROVIDERS: PCP Physician Assistant; Visit Provider Internal Medicine Gastroenterology | DX: Z12.11 Encounter for screening for malignant neoplasm of colon (principal); K57.90 Diverticulosis of intestine, part unspecified, without perforation or abscess without bleeding | CPT/HCPCS: 45378 ==

== ENCOUNTER 2024-10-01 07:56 | Outpatient (AMB) | payer BC, SELFPAY ==
--- NOTE | 2024-10-01 08:11 | MHC.PC.OV ---
Vital Signs 10/01/24 08:14 Height 5 ft 4 in Weight 129 lb BMI 22.1 BP 118/76 Blood Pressure Location Lt brachial Position Sitting Pulse 69 Pulse Source Pulse Oximeter Pulse Oximetry (%) 99 Oxygen Delivery Method Room Air Intake Visit Reasons: physical Intake Note: Physical. Forgot to have labs done. Trust Accounts Supervisor Required: No Allergies shellfish derived Allergy (Intermediate, Verified 10/01/24 08:12) Rash poison preston Allergy (Intermediate, Uncoded 10/01/24 08:12) rash, weeping Tobacco use date assessed: 03/26/24 Dental Screening Dental Screen Date: 03/26/24 HPI physical HPI Details Patient is a 63-year-old female with a significant past medical history of anxiety, insomnia, hx of mild depression (resolved), and thalassemia presenting today for physical She remains very active in dog agility and life. She does a lot of hiking. She tries to eat very healthy. Psych: She is currently on zoloft 50 mg. No SI/HI. CV: Blood pressure today is 127/70. Overdue for lipids. Heme: has thalassemia Derm: follows for routine skin exams with Dr. Ferris. Brother had melanoma Colonoscopy: completed 05/07- due in 2028 because of poor prep Mammogram: 12/0873-ny-dh-date Pap: follows with Kelsey Abdi Bone density: Recent bone density showed osteoporosis Fam hx : Sister with breast ca Brother #1 Prostate ca Brother #2 with melanoma PFSH Medical History Generalized anxiety disorder Insomnia History of anxiety Depression Surgical History Hx of colonoscopy H/O foot surgery Family History Father No problems noted. Mother No problems noted. Sister In good health History of breast cancer, Onset Age: 70 Brother In good health Maternal Aunt History of breast cancer Paternal Aunt History of breast cancer Paternal Uncle History of breast cancer Paternal Grandmother History of breast cancer Other FH: mental illness Substance use Social History (Updated 10/01/24 @ 08:12 by Yina Disla CMA) Housing: House Alcohol intake: current Alcohol intake frequency: does not drink Patient Tobacco Use Status: Former Tobacco user Tobacco use type: Cigarette Cigarettes Per Day: 3 Years Smoked: 20 e-Cigarette/Vaping Use: Never Used Second Hand Smoke Exposure: No service: No Current occupational status: employed 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 1. Little interest or pleasure in doing things: not at all 2. Feeling down, depressed, or hopeless: not at all 3. Trouble falling or staying asleep, or sleeping too much: more than half the days 4. Feeling tired or having little energy: several days 5. Poor appetite or overeating: not at all 6. Feeling bad about yourself - or that you are a failure or have let yourself or your family down: not at all 7. Trouble concentrating on things, such as reading the newspaper or watching television: not at all 8. Moving or speaking so slowly that other people could have noticed. Or the opposite - being so fidgety or restless that you have been moving around a lot more than usual: not at all 9. Thoughts that you would be better off or of hurting yourself in some way: not at all Total score: 3 Depression Screening Interpretation: Negative Depression Screening Done: Yes 23930 - PHQ-9 Billing: Yes Source: Developed by Drs. Myke Valencia, Kellie Silveira, Kermit Sharif and colleagues, with an educational abbie from [employer]. Thrive Questionnaire Date Thrive assessed: 09/25/24 I am a: Patient What is your living situation today?: I have a steady place to live Within the past 12 months, did the food you bought not last and you didn't have the money to get more?: Never true Within the past 12 months, did you worry whether your food would run out before you got money to buy more?: Never true Do you have trouble paying for medicines?: No Do you have trouble getting transportation to medical appointments?: No Do you have trouble paying your heating and electricity bill?: No Do you have trouble taking care of your child, family member or friend?: No Do you have trouble with day-to-day activities such as bathing, preparing meals, shopping, managing finances, etc.?: No Are you currently unemployed and looking for a job?: No Are you interested in more education?: No Please select the resources that you would like help with: None Currently or been in a relationship where the following occur: No concerns reported THRIVE Score: 0 AUDIT C Alcohol Use Questionnaire (AUDIT-C) 1. How often do you have a drink containing alcohol?: 2-3 times a week 2. How many drinks containing alcohol do you have on a typical day when you are drinking?: 1 or 2 3. How often do you have six or more drinks on one occasion?: Never Total Score: 3 DILIP-7 AMB Questionnaire DILIP-7 Date DILIP - 7 assessed: 10/01/24 Feeling nervous, anxious, or on edge: 0 = Not at all Not being able to stop or control worryin = Not at all Worrying too much about different things: 0 = Not at all Trouble relaxin = Not at all Being so restless that it is hard to sit still: 0 = Not at all Becoming easily annoyed or irritable: 0 = Not at all Feeling afraid as if something awful might happen: 0 = Not at all Total DILIP-7 score (0-4 normal; 5-9 mild; 10-14 moderate; 15-21 severe): 0 Source: Developed by Drs. Myke Valencia, Kellie Silveira, Kermit Sharif and colleagues, with an educational abbie from [employer]. DILIP-7 Assessment Billing DILIP-7 Assessment Tool: DILIP-7 Assessment 76929 Physical exam (Primary Care) Vital Signs: Last Vital Signs Pulse 69 10/01/24 08:14 BP 118/76 10/01/24 08:14 Pulse Ox 99 10/01/24 08:14 Oxygen Delivery Method Room Air 10/01/24 08:14 BMI result Body Mass Index 22.1 Tobacco/Smoking Status: Tobacco use Status Tobacco use date assessed 03/26/24 10/01/24 08:15 Patient Tobacco Use Status Former Tobacco user 10/01/24 08:15 Tobacco use type Cigarette 10/01/24 08:15 e-Cigarette/Vaping Use Never Used 10/01/24 08:15 PHQ-9: PHQ-9 Score PHQ-9: Total score 3 10/01/24 08:18 Depression Screening Interpretation: Negative Thrive Assessment: Date of Thrive Assessment Date Thrive assessed 09/25/24 10/01/24 08:15 Currently or been in a relationship where the following occur: No concerns reported Const Orientation/consciousness: patient oriented x3 HENMT Ears: hearing grossly normal bilaterally and TM's normal bilaterally General nose exam: No nasal polyps present Face and sinus: Yes sinuses nontender Mouth: Normal oral and palatal mucosa present Eyes Pupils: Equal, round and reactive pupils present EOM: EOMs intact bilaterally Neck Neck: Yes full ROM and Yes no lymphadenopathy Thyroid: Thyroid normal Chest Chest palpation & inspection: normal inspection of the chest Resp Auscultation: clear to auscultation bilaterally Cardio Rate: regular rate Rhythm: regular rhythm Heart sounds: S1 normal heart sound present and S2 normal heart sound present Peripheral pulses: Peripheral pulses 2+ throughout GI Other: Soft, nontender Auscultation: normal bowel sounds Rectal Exam - Female: deferred General: Yes no CVA tenderness Back/Spine/Pelvis Other: Nontender Back: no CVA tenderness Skin General skin exam: no rashes or lesions noted Neuro General: patient oriented x3, gait normal, CN's II-XI intact bilaterally and deep tendon reflexes 2+ bilaterally Cranial nerves: Yes Equal, round and reactive pupils present Motor exam (neuro): 5/5 motor strength present throughout Sensory Exam: double simultaneous stimulation for sensation normal Coordination: [id number] test normal and Romberg test negative Extrem General: Yes normal to inspection and Yes full ROM Psych Affect: normal affect Attitude: cooperative Thought process: Normal thought process present Thought content: Normal thought content present Insight: Good insight present (Psych) Judgement: Good judgement present (Psych) Coding Level of Care Code Est Pt Prev Care 40-64y(62233) Diagnoses Routine general medical examination at a health care facility Z00.00 Osteoporosis M81.0 Additional Codes DILIP-7 Assessment Billing - DILIP-7 Assessment Tool: DILIP-7 Assessment 86411 ([id number]) PHQ-9 - 11225 - PHQ-9 Billing: Yes ([id number]) Assessment & Plan Assessment & Plan (1) Routine general medical examination at a health care facility: Code(s): Z00.00 - Encounter for general adult medical examination without abnormal findings Plan: Reminded patient to complete labs. Health maintenance reviewed. (2) Osteoporosis: Code(s): M81.0 - Age-related osteoporosis without current pathological fracture Category: Medical Plan: Referral to endocrinology. Encouraged calcium and vitamin-D supplement. Orders: Orders Vitamin D 1,25 dihydroxy Today M81.0 - Age-related osteoporosis without current pathological fracture Referrals Endocrinology Referral M81.0 - Age-related osteoporosis without current pathological fracture
[2024-10-01 08:14] VITALS: BP 118/76; PULSE 69; O2SAT 99; BMI 22.1
== END 2024-10-01 09:01 | disposition home or self-care (01) ==
PROVIDERS: PCP Physician Assistant; Visit Provider Physician Assistant
DX: Z00.00 Encounter for general adult medical examination without abnormal findings (principal); M81.0 Age-related osteoporosis without current pathological fracture

== ENCOUNTER → 2024-10-01 07:56 | Outpatient (BNVA) | payer BC, SELFPAY | PROVIDERS: PCP Physician Assistant; Visit Provider Physician Assistant | DX: Z00.00 Encounter for general adult medical examination without abnormal findings (principal); M81.0 Age-related osteoporosis without current pathological fracture | CPT/HCPCS: 96127 ==

== ENCOUNTER 2024-10-28 13:21 | Outpatient (AMB) | payer BC, SELFPAY ==
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
[2024-10-28 13:23] VITALS: BP 116/66; PULSE 82; BMI 20.8
== END 2024-10-28 14:15 | disposition home or self-care (01) ==
PROVIDERS: PCP Physician Assistant; Visit Provider Internal Medicine Endocrinology, Diabetes & Metabolism
DX: M81.0 Age-related osteoporosis without current pathological fracture (principal)
CPT/HCPCS: 99204

== ENCOUNTER 2025-01-12 11:15 | Outpatient (REF) | payer OTHER, SELFPAY ==
[2025-01-12 12:30] LABS: MANUAL DIFF FLAG NO
[2025-01-12 12:50] LABS: Basophils Absolute Auto 0.1 X10*3/uL (0.0-0.2); Basophils Percent Auto 0.7 % (0-2); Eosinophils Absolute Auto 0.1 X10*3/uL (0.0-0.4); Eosinophils Percent Auto 0.8 % (0-4); Hematocrit 36.8 % (37.0-47.0); Hemoglobin 11.8 g/dl (12.0-16.0); Imm Gran Abs Auto 0.02 X10*3/uL (0.00-0.03); Imm Gran Pct Auto 0.3 % (0.0-0.4); Lymphocytes Absolute Auto 1.5 X10*3/uL (1.2-4.9); Lymphocytes Percent Auto 19.9 % (20-40); Mean Corpuscular HGB Conc 32.1 g/dl (31.0-35.0); Mean Corpuscular Hemoglobin 21.8 pg (27.0-33.0); Monocytes Absolute Auto 0.3 X10*3/uL (0.1-1.2); Monocytes Percent Auto 4.3 % (2-11); Neutrophils Absolute Auto 5.5 x10*3/uL (2.0-8.3); Platelet Count 156 X10*3/uL (160-400); Red Blood Count 5.41 X10*6/uL (4.20-5.50); Red Cell Distribution Width 15.9 % (11.0-16.0); White Blood Count 7.4 X10*3/uL (4.8-10.8)
[2025-01-12 13:34] LABS: Alanine Aminotransferase 30 U/L (0-31); Albumin Level 4.6 g/dL (3.5-5.0); Alkaline Phosphatase 74 U/L (39-117); Anion Gap 11 (12-20); Aspartate Amino Transferase 31 U/L (5-31); Bilirubin Total 1.1 mg/dL (0.0-1.0); Blood Urea Nitrogen 16 mg/dL (9-16); Carbon Dioxide 27 mmol/L (22-29); Chloride 104 mmol/L (96-108); Cholesterol 182 mg/dL (<200); Estimated Glomerular Filt Rate > 60; Glucose Fasting 80 mg/dL (60-99); Glucose Random 80 mg/dL (60-115); HDL Cholesterol 82 mg/dL (>40); LDL Cholesterol Calculated 91 mg/dL (<100); Phosphorus 3.5 mg/dL (2.7-4.5); Potassium 3.9 mmol/L (3.3-5.1); Sodium 138 mmol/L (135-145); TSH reflex Free T4 1.69 uIU/mL (0.32-4.0); Thyroid Stimulating Hormone 1.69 uIU/mL (0.32-4.0); Total Protein 7.5 g/dL (6.5-8.0); Triglycerides 45 mg/dL (<150)
[2025-01-12 13:46] LABS: Folate 15.1 ng/mL (> or = 4.0); Vitamin B12 550 pg/mL (200-900)
[2025-01-12 20:57] LABS: Vitamin D 25-OH Total 35.9 ng/mL (>30)
[2025-01-13 21:03] LABS: Prot Elec - Albumin 4.9 g/dL (3.8-4.8); Prot Elec - Alpha1 0.2 g/dL (0.2-0.3); Prot Elec - Alpha2 0.5 g/dL (0.5-0.9); Prot Elec - Beta 1 0.4 g/dL (0.4-0.6); Prot Elec - Beta 2 0.3 g/dL (0.2-0.5); Prot Elec - Gamma 1.3 g/dL (0.8-1.7); Prot Elec - Total Protein 7.5 g/dL (6.1-8.1)
[2025-01-17 14:29] LABS: VITAMIN D (1,25 OH) D3 45 pg/mL; Vit D (1,25-Dihydroxy) Total 45 pg/mL (18-72); Vitamin D (1,25 OH) D2 <8 pg/mL
== END 2025-01-12 11:16 | disposition home or self-care (01) ==
LOC: HO.WFDLDS 11:15
PROVIDERS: Referring Provider Internal Medicine Endocrinology, Diabetes & Metabolism; Visit Provider Physician Assistant
DX: F41.1 Generalized anxiety disorder (principal); Z13.220 Encounter for screening for lipoid disorders; M81.0 Age-related osteoporosis without current pathological fracture
CPT/HCPCS: 36415; 80048; 80053; 80061; 82306; 82607; 82652; 82746; 84100; 84165; 84439; 84443; 85025; 86335

== ENCOUNTER 2025-01-14 14:18 | Outpatient (REF) | payer OTHER, SELFPAY ==
[2025-01-14 14:47] LABS: Total Volume 24 Hour Urine 4300 mL
[2025-01-14 15:11] LABS: Creatinine, mg/dL 45.94
[2025-01-16 17:03] LABS: Calcium, 24 Hr Urine 211 mg/24 h; Calcium/Creatinine Ratio 102 mg/g creat (30-275); Creatinine 24Hr Urine 2.06 g/24 h (0.50-2.15)
== END 2025-01-14 14:19 | disposition home or self-care (01) ==
LOC: HO.LNP 14:18
PROVIDERS: Visit Provider Internal Medicine Endocrinology, Diabetes & Metabolism
DX: M81.0 Age-related osteoporosis without current pathological fracture (principal)
CPT/HCPCS: 82340; 82570

== ENCOUNTER 2025-01-21 12:46 | Outpatient (AMB) | payer OTHER, SELFPAY ==
--- NOTE | 2025-01-21 13:01 | A.OFFVIS_ITS ---
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 She is doing well with tibco developer concerns: History of osteoporosis has a follow up with Dr. Canada. Currently sexually active. Denies any vaginal dryness or irritation. STI testing offered; she declined. Attempting to eat a healthy diet with calcium and vitamin D and stays active with exercise. Last pap smear; 2021. Mammogram 11/2023. Colonoscopy is UTD. Denies any family history of breast, ovarian or colon cancer. [facility] Medical History Generalized anxiety disorder Insomnia History of anxiety Depression Surgical History Hx of colonoscopy H/O foot surgery Family History Father No problems noted. Mother No problems noted. Sister In good health History of breast cancer, Onset Age: 70 Brother In good health Maternal Aunt History of breast cancer Paternal Aunt History of breast cancer Paternal Uncle History of breast cancer Paternal Grandmother History of breast cancer Other FH: mental illness Substance use Social History Housing: House Alcohol intake: current Alcohol intake frequency: does not drink Patient Tobacco Use Status: Former Tobacco user Tobacco use type: Cigarette Cigarettes Per Day: 3 Years Smoked: 20 e-Cigarette/Vaping Use: Never Used Second Hand Smoke Exposure: No service: No Current occupational status: employed 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 Current occupational exposures/hazards: No Sexual orientation: Straight/Heterosexual Gender identity: Female Cognitive needs: No Hearing needs: No Vision needs: No Female Reproductive History Menstrual Date of last pap smear: 11/22/21 Date of Mammogram: 11/15/23 Date of last Bone Density Screenin04/25/24 Review of Systems Const All systems reviewed & are unremarkable except as noted in HPI and below Reports as per HPI Eyes Reports no additional complaints ENT Reports no additional complaints Card Reports no additional complaints Resp Reports no additional complaints GI Reports as per HPI and Reports no additional complaints Reports as per HPI Musc Reports no additional complaints Skin/Breast Reports as per HPI Neuro Reports no additional complaints Psych Reports no additional complaints Endo Reports no additional complaints Johnny/Lymph Reports no additional complaints Aller/Immun Reports no additional complaints Physical Exam Vital Signs: Last Vital Signs BP 110/76 01/21/25 13:02 BMI result Body Mass Index 21.3 Const General: cooperative, healthy appearing, no acute distress, well developed and alert Orientation/consciousness: patient oriented x3 HEENT Head: Yes normal to inspection Eyes General: appearance normal, both eyes and all related structures Neck Neck: Yes normal visual inspection Thyroid: Thyroid normal Chest Chest palpation & inspection: normal inspection of the chest and other (no puckering, dimpling, peau de orange, retraction, discharge, masses) Breast/axilla inspection: normal inspection of the breasts Breast/axilla palpation: normal palpation of the breasts Resp Effort & Inspection: normal respiratory effort GI Inspection: Yes normal to inspection Palpation (GI): Soft to palpation Rectal Exam - Female: deferred General: Yes bladder normal to palpation External Female Exam: normal external appearance and normal appearance of the urethra Speculum Exam - Vagina: normal appearance of the vagina, normal palpation, normal vaginal discharge and vagina atrophic Speculum Exam - Cervix: normal appearance of the cervix and normal palpation Bimanual exam- vagina & uterus: normal bimanual exam, normal palpation, uterine size normal, bladder normal to palpation, normal palpation and non-tender Bimanual Exam- Adnexa, other: no masses Skin General skin exam: no rashes or lesions noted Rashes: no rashes Neuro General: patient oriented x3 Cognition (Neuro): normal cognition Extrem General: Yes normal to inspection Psych Attitude: cooperative Thought process: Normal thought process present Assessment & Plan Assessment & Plan (1) Encounter for well woman exam with routine gynecological exam: Code(s): Z01.419 - Encounter for gynecological examination (general) (routine) without abnormal findings Category: Medical Plan Discussed: Current recommendations for pap smears per ASCCP guidelines. Breast awareness, periodic self breast exams and yearly mammogram. Mammogram order placed. Maintain a healthy lifestyle, well balanced diet including Calcium 1,200 mg and Vitamin D 600 IU daily, and routine exercise. Contact the office with any postmenopausal bleeding. Patient verbalizes understanding and agrees to the plan of care. She was given opportunity to ask questions and all questions were answered to the best of my ability. RTO in 1 year for annual tibco developer exam. This note is constructed using voice recognition software. While every effort has been made to ensure accuracy, aircraft mechanic structures errors may have been included. Orders: Orders MM tomosynthesis screening BI Today Z12.31 - Encounter for screening mammogram for malignant neoplasm of breast Coding Level of Care Code Est Pt Prev Care 40-64y(82728) Diagnoses Encounter for well woman exam with routine gynecological exam Z01.419
[2025-01-21 13:02] VITALS: BP 110/76; BMI 21.3
== END 2025-01-21 13:29 | disposition home or self-care (01) ==
LOC: HO.HWS 12:46
PROVIDERS: PCP Physician Assistant; Visit Provider Advanced Practice Midwife
DX: Z01.419 Encounter for gynecological examination (general) (routine) without abnormal findings (principal)
CPT/HCPCS: 99396; 99459

== ENCOUNTER → 2025-01-21 12:46 | Outpatient (BNVA) | payer OTHER, SELFPAY | PROVIDERS: PCP Physician Assistant; Visit Provider Advanced Practice Midwife ==

== ENCOUNTER 2025-02-25 13:18 | Outpatient (AMB) | payer OTHER, SELFPAY ==
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
[2025-02-25 13:23] VITALS: BP 116/64; PULSE 85; O2SAT 96; BMI 20.1
== END 2025-02-25 14:24 | disposition home or self-care (01) ==
LOC: HO.ENCR 13:19
PROVIDERS: PCP Physician Assistant; Visit Provider Internal Medicine Endocrinology, Diabetes & Metabolism
DX: M81.0 Age-related osteoporosis without current pathological fracture (principal)
CPT/HCPCS: 99213

== ENCOUNTER → 2025-02-25 13:18 | Outpatient (BNVA) | payer OTHER, SELFPAY | PROVIDERS: PCP Physician Assistant; Visit Provider Internal Medicine Endocrinology, Diabetes & Metabolism ==

== ENCOUNTER 2025-04-02 12:09 | Outpatient (REF) | payer OTHER, SELFPAY ==
--- NOTE | ~2025-04-02 | MM_ITS ---
EXAMINATION: MM SCREENING DIGITAL BREAST TOMOSYNTHESIS, BILATERAL CLINICAL INFORMATION: Screening. Asymptomatic. COMPARISON: Mammography: Comparison is made with available priors TECHNIQUE: Digital breast mammography with tomosynthesis is performed in both the craniocaudal and mediolateral oblique views along with computer-aided detection (CAD). FINDINGS: The breasts are heterogeneously dense, which may obscure small masses (ACR BI-RADS breast composition Category c). There are no significant masses, abnormal calcifications, or other abnormalities. MM/MM tomosynthesis screening BI IMPRESSION: No mammographic evidence of malignancy. ASSESSMENT: BI-RADS BI-RADS 1 - Negative RECOMMENDATION: Routine annual mammography screening. 1 year F/U This examination should not preclude the clinical evaluation of a suspicious palpable abnormality. This patient's information was entered into a reminder system with a target due date for their next mammogram. Electronically signed by: Jacki Fernandes DO 04/07/2025 03:51 PM EDT
== END 2025-04-02 12:10 | disposition home or self-care (01) ==
LOC: HO.MAMMO 12:09
PROVIDERS: Absent Provider Advanced Practice Midwife; PCP Physician Assistant; Visit Provider Physician Assistant
DX: Z12.31 Encounter for screening mammogram for malignant neoplasm of breast (principal)
CPT/HCPCS: 77063; 77067

== ENCOUNTER → 2025-04-02 12:12 | Outpatient (BNV) | payer OTHER, SELFPAY | PROVIDERS: Absent Provider Advanced Practice Midwife; PCP Physician Assistant; Visit Provider Internal Medicine | DX: Z12.31 Encounter for screening mammogram for malignant neoplasm of breast (principal) | CPT/HCPCS: 77063; 77067 ==

== ENCOUNTER 2025-06-01 13:29 | Outpatient (AMB) | payer OTHER, SELFPAY ==
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
[2025-06-01 13:33] VITALS: BP 114/72; PULSE 66; O2SAT 96; BMI 19.5
== END 2025-06-01 13:49 | disposition home or self-care (01) ==
LOC: HO.ENCR 13:30
PROVIDERS: PCP Physician Assistant; Visit Provider Internal Medicine Endocrinology, Diabetes & Metabolism
DX: M81.0 Age-related osteoporosis without current pathological fracture (principal)
CPT/HCPCS: 99213